=== PATIENT | female | born 1940 | race Caucasian/White ===

== ENCOUNTER → 2017-04-06 | Outpatient (CLI) | payer MEDICARE, OTHER | END | disposition home or self-care (01) | LOC: PCVCCLINIC 15:36 | PROVIDERS: ATTEND Nuclear Medicine Nuclear Cardiology | DX: I10 Essential (primary) hypertension (principal); I73.9 Peripheral vascular disease, unspecified; I72.3 Aneurysm of iliac artery; I77.9 Disorder of arteries and arterioles, unspecified; E78.00 Pure hypercholesterolemia, unspecified; Z87.891 Personal history of nicotine dependence; Z79.899 Other long term (current) drug therapy | CPT/HCPCS: G0463 ==

== ENCOUNTER → 2017-04-08 | Outpatient (CLI) | payer MEDICARE, OTHER ==
[~2017-04-08] MED LIST: CLOPIDOGREL BISULFATE 75 MG TABLET ONE; DIAZEPAM 10 MG TABLET. ONE; EPTIFIBATIDE BOLUS 2,000 MCG/ML 10ML VIAL. IV ONE; HEPARIN SODIUM 5,000 UNIT/ML VIAL for PCVC. ONE; IODIXANOL 270 MG/ML 100 ML VIAL. ONE; IV NORMAL SALINE 1000ML BAG 1,000 ML ONE; IV NORMAL SALINE 500ML BAG 500 ML ONE; LIDOCAINE 1% Multi-Dose 20 ML VIAL. ONE; MIDAZOLAM HCL/PF 2 MG/2 ML VIAL. ONE; VANCOMYCIN 1GM IVPB FOR OMNI 250 ML ONE; fentaNYL PF VIAL 100 MCG/2 ML VIAL ONE
--- NOTE | 2017-04-10 00:13 | PCVCINTER ---
EXAM: 1. AORTOGRAM AND BILATERAL LOWER EXTREMITY RUNOFF ANGIOGRAM 2. BILATERAL RENAL ANGIOGRAPHY 3. LEFT SUPERFICIAL FEMORAL ARTERY ATHERECTOMY. 4. SECONDARY THROMBECTOMY LEFT SUPERFICIAL FEMORAL ARTERY. 5. DRUG COATED BALLOON ANGIOPLASTY LEFT SUPERFICIAL FEMORAL ARTERY. 6. RIGHT EXTERNAL ILIAC ARTERY STENT PLACEMENT. 7. LEFT EXTERNAL ILIAC ARTERY STENT PLACEMENT. INDICATION: Peripheral arterial disease. Coronary artery disease. Nonhealing ulcer right lower extremity. Hypertension. Renal atherosclerosis. PROCEDURE: Procedure and risks of angiography intervention is appropriate including limb loss stroke and were discussed with the patient's family and consent obtained. The patient's right groin was prepped abnormal sterile fashion. IV conscious sedation was used to procedure with appropriate monitoring for 90 minutes. Ultrasound was used to interrogate the right groin and showed the right common femoral artery to be patent. A permanent spot film was obtained. Under ultrasound guidance access into the right common femoral artery was obtained and a 5 Yemeni sheath was placed. Through this a 5 Yemeni flush catheter was placed into the abdominal aorta at the level of the renal arteries and AP aortogram was performed. Catheter was positioned at the aortic bifurcation and both oblique views of the pelvis were obtained. Catheter was positioned into the right external iliac artery and right leg runoff angiography was performed. Catheter was exchanged for a visceral catheter was placed into the right renal arteries and right renal angiograms obtained. Catheter was placed into the the left renal arteries and left renal angiograms were obtained. Catheter was advanced to the level of the left external iliac artery and left leg runoff angiography was obtained. Patient was given 4500 units of heparin. A 6 Yemeni crossover sheath was placed via the right groin to the level of the left common femoral artery. Atherectomy of the left superficial femoral artery was performed with 2.0 mm [employer] laser atherectomy catheter in the standard fashion. Following atherectomy small areas of thrombus were observed and because of this secondary thrombectomy throughout the left superficial femoral artery was carried out with mechanical suction thrombectomy catheter in the standard fashion. Minimal debris was removed. Following this drug coated balloon angioplasty of the left superficial femoral artery was carried out with a 4 x 150 and 4 x 120 [employer]tronic Admiral RN TELE catheter. Stent placement across the areas of high-grade stenosis in the left artery was carried out with a stent with subsequent dilatation to diameter mm. Stent placement across the areas of high-grade stenosis in the left artery was carried out with a stent with subsequent dilatation to diameter mm. Follow-up angiogram was performed. Catheters and wires removed. Sheath was removed and hemostasis obtained using the Exoseal device. No immediate complications. FINDINGS: Aortogram: There is one right and one left renal artery. Moderate ectasia throughout the infrarenal abdominal aorta without significant stenosis. Pelvis: Mild aneurysmal dilatation right common iliac artery. Left common iliac artery is patent. Right renal artery: Moderate plaque proximal vessel does not cause significant stenosis. Left renal artery: Moderate plaque proximal vessel causes only mild stenosis. Right leg: Scattered plaque throughout the superficial femoral artery and popliteal artery which otherwise show adequate patency. The common femoral and profunda femoral arteries are patent. The anterior tibial and posterior tibial arteries are occluded throughout most of their length. Moderate stenosis distal tibial peroneal trunk. Peroneal artery show satisfactory patency throughout. Left leg: Common femoral and profunda femoral arteries are patent. There is 95% stenosis distal superficial femoral artery. The popliteal artery is patent. The anterior and posterior tibial arteries are occluded. The peroneal artery is widely patent throughout to refill the distal anterior tibial artery. Left superficial femoral artery: Following procedure as above adequate patency has been restored throughout the superficial femoral artery. Right external iliac artery: Following procedure as above vessel shows satisfactory patency. Left external iliac artery: Following procedure as above vessel shows satisfactory patency. IMPRESSION: Critical grade stenosis distal left superficial femoral artery was treated as above with good patency restored. Bilateral external iliac artery stenoses were treated with stent placements with satisfactory patency restored. 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 follow up LOC:OFFICE
== END | disposition home or self-care (01) ==
LOC: PCVCINTER 09:02
PROVIDERS: ATTEND Nuclear Medicine Nuclear Cardiology
DX: I70.213 Atherosclerosis of native arteries of extremities with intermittent claudication, bilateral legs (principal); I10 Essential (primary) hypertension; I70.1 Atherosclerosis of renal artery; I25.10 Atherosclerotic heart disease of native coronary artery without angina pectoris
CPT/HCPCS: 36252; 37186; 37221; 37225; 76937; 99152; 99153; C1725; C1751; C1757; C1769; C1876; C1885; C1887; C1894; C2623; J1327; J1644; J2250; J3010; J3370; J7030; J7040; C1760

== ENCOUNTER → 2017-07-12 | Outpatient (CLI) | payer MEDICARE, OTHER ==
--- NOTE | 2017-07-12 10:27 | PCVCIMAG ---
EXAM: AORTOILIAC DUPLEX INDICATION: Peripheral arterial disease FINDINGS: AORTA: Suprarenal aorta measures maximum diameter of 2.7 x 4.1 cm. There is a fusiform infrarenal aortic aneurysm. The infrarenal aorta measures maximum diameter of 2.9 cm. No aortic stenosis. RIGHT COMMON ILIAC ARTERY: Maximum diameter is 1.7 cm. No significant stenosis. RIGHT EXTERNAL ILIAC ARTERY: No significant stenosis. LEFT COMMON ILIAC ARTERY: Maximum diameter is 1.7 cm. No significant stenosis. LEFT EXTERNAL ILIAC ARTERY: No significant stenosis. IMPRESSION: 4.1 cm suprarenal abdominal aortic aneurysm. 2.9 cm infrarenal abdominal aortic aneurysm. Previous bilateral iliac artery stents maintaining good patency. LOC:[id number]
--- NOTE | 2017-07-12 11:03 | PCVCIMAG ---
EXAM: BILATERAL CAROTID DUPLEX INDICATION: Carotid Occlusive Disease. FINDINGS: Doppler Measurements (centimeters per second): RIGHT: Peak CCA-59, Peak ECA-89, Diastolic ICA-28, Peak ICA-114, ICA/CCA Ratio-1.9. LEFT: Peak CCA-80, Peak ECA-106, Diastolic ICA-24, Peak ICA-72, ICA/CCA Ratio-0.9. RIGHT CAROTID: The carotid bulb has moderately severe plaque. The proximal internal carotid artery shows 40-50% stenosis. The common carotid artery shows no significant stenosis. The external carotid artery shows no significant stenosis. LEFT CAROTID: The carotid bulb has moderate plaque. The proximal internal carotid artery shows <40% stenosis. The common carotid artery shows no significant stenosis. The external carotid artery shows no significant stenosis. Antegrade flow in both vertebral arteries. IMPRESSION: 40-50% stenosis of the right internal carotid artery with moderately severe plaque. <40% stenosis of the left internal carotid artery with moderate plaque. LOC:[id number]
--- NOTE | 2017-07-12 11:11 | PCVCIMAG ---
EXAM: BILATERAL LOWER EXTREMITY ARTERIAL DUPLEX INDICATION: Peripheral Arterial Disease. Leg pain. FINDINGS: Right Leg: Satisfactory arterial waveforms in the common femoral and profunda femoral artery and throughout the superficial femoral artery and popliteal artery without flow-limiting stenosis. Occlusion throughout the anterior and posterior tibial arteries. The peroneal artery is patent. Left Leg: Satisfactory arterial waveforms in the common femoral and profunda femoral artery and throughout the superficial femoral artery without significant stenosis. Mild velocity elevation proximal popliteal artery of 204 cm/s consistent with 50% stenosis not felt to be flow-limiting. Occlusion of the anterior and posterior tibial artery. The peroneal artery is patent. IMPRESSION: No right SFA or popliteal artery stenosis. 50% stenosis proximal popliteal artery not felt to be flow-limiting. No left superficial femoral artery stenosis. 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 LOC:[id number]
== END | disposition home or self-care (01) ==
LOC: PCVCIMAG 08:39
PROVIDERS: ATTEND Nuclear Medicine Nuclear Cardiology
DX: I71.4 Abdominal aortic aneurysm, without rupture (principal); I65.23 Occlusion and stenosis of bilateral carotid arteries; I70.202 Unspecified atherosclerosis of native arteries of extremities, left leg; I77.1 Stricture of artery; Z95.828 Presence of other vascular implants and grafts
CPT/HCPCS: 93880; 93925; 93978

== ENCOUNTER → 2018-01-13 | Outpatient (CLI) | payer MEDICARE, OTHER | END | disposition home or self-care (01) | LOC: PCVCIMAG 13:28 | DX: I73.9 Peripheral vascular disease, unspecified (principal) | CPT/HCPCS: 93925 ==

== ENCOUNTER → 2018-07-25 | Outpatient (CLI) | payer MEDICARE, OTHER ==
--- NOTE | 2018-07-25 16:24 | PCVCIMAG ---
EXAM: BILATERAL CAROTID DUPLEX INDICATION: Carotid Occlusive Disease. FINDINGS: Doppler Measurements (centimeters per second): RIGHT: Peak CCA-55, Peak ECA-85, Diastolic ICA-34, Peak ICA-111, ICA/CCA Ratio-2.0. LEFT: Peak CCA-76, Peak ECA-122, Diastolic ICA-24, Peak ICA-81, ICA/CCA Ratio-1.1. RIGHT CAROTID: The carotid bulb has moderate plaque. The proximal internal carotid artery shows 40-50% stenosis. The common carotid artery shows no significant stenosis. The external carotid artery shows no significant stenosis. LEFT CAROTID: The carotid bulb has moderate plaque. The proximal internal carotid artery shows <40% stenosis. The common carotid artery shows no significant stenosis. The external carotid artery shows no significant stenosis. Antegrade flow in both vertebral arteries. IMPRESSION: 40-50% stenosis of the right internal carotid artery with moderate plaque. <40% stenosis of the left internal carotid artery with moderate plaque. No change since July 2017. LOC:[id number]
--- NOTE | 2018-07-25 16:38 | PCVCIMAG ---
EXAM: NONINVASIVE ARTERIAL EXAMINATION OF BOTH LOWER EXTREMITIES INCLUDING PRE AND POST EXERCISE PRESSURE MEASUREMENTS AND DOPPLER WAVEFORMS INDICATION: Peripheral Arterial Disease. Leg pain. FINDINGS: Right Brachial: 124 mm Hg. Right Dorsalis Pedis: 140 mm Hg. Right Posterior Tibial: 0 mm Hg. Right BURTON = 1.13. Left Brachial: 123 mm Hg. Left Dorsalis Pedis: 136 mm Hg. Left Posterior Tibial: 0 mm Hg. Left BURTON = 1.10. Post Exercise: Right Brachial 140 mm Hg. Right Dorsalis Pedis: 107 mm Hg. Left Dorsalis Pedis: 77 mm Hg. Right BURTON = 0.76. Left BURTON = 0.55. IMPRESSION: No resting ischemia in the right lower extremity. Mild exercise induced ischemia in the right lower extremity. No resting ischemia in the left lower extremity. Moderate exercise induced ischemia in the left lower extremity. LOC:[id number]
--- NOTE | 2018-07-25 16:57 | PCVCIMAG ---
EXAM: BILATERAL LOWER EXTREMITY ARTERIAL DUPLEX INDICATION: Peripheral Arterial Disease. Leg pain. FINDINGS: Right Leg: Common femoral profunda femoral arteries are patent. Superficial femoral artery and popliteal artery showing adequate patency. The anterior tibial and posterior tibial arteries are occluded and this is unchanged. The peroneal artery is patent. Left Leg: Common femoral and profunda femoral arteries are patent. Superficial femoral artery shows satisfactory patency throughout. Increased systolic velocity 396 cm/s upper popliteal artery consistent with 80% restenosis. The anterior tibial artery is occluded. The peroneal artery is patent. The distal posterior tibial artery is occluded. IMPRESSION: Unchanged occlusion of the right anterior and posterior tibial arteries. Otherwise no flow limiting stenosis in the right lower extremity. Interval restenosis proximal popliteal artery of at least 80%. Unchanged occlusion of the left anterior and posterior tibial arteries. LOC:[id number]
== END | disposition home or self-care (01) ==
LOC: PCVCIMAG 15:37
PROVIDERS: ATTEND Nuclear Medicine Nuclear Cardiology
DX: I65.23 Occlusion and stenosis of bilateral carotid arteries (principal); I73.9 Peripheral vascular disease, unspecified; I77.9 Disorder of arteries and arterioles, unspecified; I71.4 Abdominal aortic aneurysm, without rupture; I72.3 Aneurysm of iliac artery; I10 Essential (primary) hypertension; E78.00 Pure hypercholesterolemia, unspecified; Z87.891 Personal history of nicotine dependence; Z79.82 Long term (current) use of aspirin
CPT/HCPCS: 36415; 93880; 93923; 93925; G0463; 93924

== ENCOUNTER → 2018-08-02 | Outpatient (CLI) | payer MEDICARE, OTHER ==
[~2018-08-02] MED LIST changes: -CLOPIDOGREL BISULFATE 75 MG TABLET ONE; -HEPARIN SODIUM 5,000 UNIT/ML VIAL for PCVC. ONE; +HEPARIN for SUB-Q USE 5,000 UNIT/ML VIAL. SQ ONE; -IV NORMAL SALINE 500ML BAG 500 ML ONE; -LIDOCAINE 1% Multi-Dose 20 ML VIAL. ONE; +LIDOCAINE 1%/EPI 1:100,000 20 ML VIAL. ONE; -VANCOMYCIN 1GM IVPB FOR OMNI 250 ML ONE; +WATER FOR INJECTION,STERILE 20 ML VIAL. IJ ONE; +ceFAZolin SODIUM 1 GM VIAL ONE
--- NOTE | 2018-08-02 13:59 | PCVCINTER ---
EXAM: 1. AORTOGRAM AND BILATERAL LOWER EXTREMITY RUNOFF ANGIOGRAM 2. BILATERAL RENAL ANGIOGRAPHY 3. LEFT SUPERFICIAL FEMORAL ARTERY AND UPPER LEFT POPLITEAL ARTERY ATHERECTOMY AND DRUG COATED BALLOON ANGIOPLASTY. 4. SECONDARY THROMBECTOMY LEFT POPLITEAL ARTERY. INDICATION: Peripheral arterial disease. Coronary artery disease. Left calf claudication. Hypertension. Renal atherosclerosis. No prior catheter based angiographic study is available. A full diagnostic angiogram study is performed today and the decision to intervene is based on this diagnostic study. PROCEDURE: Procedure and risks of angiography intervention is appropriate including limb loss stroke and were discussed with the patient's family and consent obtained. The patient's right groin was prepped in the normal sterile fashion. IV conscious sedation was used throughout procedure with appropriate monitoring from 12:00 PM through 1:15 PM. Ultrasound was used to interrogate the right groin and showed the right common femoral artery to be patent. A permanent spot film was obtained. Under ultrasound guidance access into the right common femoral artery was obtained and a 5 Kinyarwanda sheath was placed. Through this a 5 Kinyarwanda flush catheter was placed into the abdominal aorta at the level of the renal arteries and AP aortogram was performed. Catheter was positioned at the aortic bifurcation and both oblique views of the pelvis were obtained. Catheter was positioned into the right external iliac artery and right leg runoff angiography was performed. Catheter was exchanged for a visceral catheter was placed into the right renal arteries and right renal angiograms obtained. Catheter was placed into the the left renal arteries and left renal angiograms were obtained. Catheter was advanced to the level of the left external iliac artery and left leg runoff angiography was obtained. Patient was given 4000 units of heparin. A 6 Kinyarwanda crossover sheath was placed via the right groin to the level of the left common femoral artery. Atherectomy of the left mid/distal superficial femoral artery and upper popliteal artery was performed with 2.0 mm [employer] laser atherectomy catheter in the standard fashion. Following atherectomy small areas of thrombus were observed and because of this secondary thrombectomy throughout the left popliteal artery was carried out with mechanical suction thrombectomy catheter in the standard fashion. Minimal debris was removed. Following this drug coated balloon angioplasty of the left mid/distal superficial femoral artery and upper popliteal artery was carried out with a 4 x 120 and 4 x 120 [employer] Cyndie Jeremy FUEL MANAGER catheters. Follow-up angiogram was performed. Catheters and wires removed. Sheath was removed and hemostasis obtained using the FISH device. No immediate complications. FINDINGS: Aortogram: There is one right and one left renal artery. Moderate plaque infrarenal abdominal aorta without significant stenosis. Ectasia throughout the abdominal aorta. Pelvis: Moderate ectasia right common iliac artery. Previous stent distal right common iliac artery and right external iliac artery showing satisfactory patency. Left common iliac artery is patent. Previous left external iliac artery stent is patent. Both internal iliac arteries are patent. The right and left common femoral and profunda femoral arteries are patent. Right renal artery: Moderate plaque proximal vessel causes only mild stenosis. Left renal artery: Mild plaque proximal vessel causes minimal stenosis. Right leg: Moderate scattered plaque at the superficial femoral artery and popliteal artery without flow-limiting stenosis until the distal most popliteal artery with there is 60% stenosis. The anterior tibial and posterior tibial arteries are occluded. Moderate stenosis distal tibial peroneal trunk. The peroneal artery then shows good patency throughout its length to refill the distal anterior tibial artery into a small dorsalis pedis. Left leg: Moderate plaque mid and upper superficial femoral artery without significant stenosis. Moderate stenosis distal superficial femoral artery and 90% stenosis upper popliteal artery. Mid and lower popliteal artery is patent. Anterior tibial and posterior tibial arteries are occluded. The peroneal artery shows good patency throughout to refill a small dorsalis pedis. Left superficial femoral artery/popliteal artery: Following procedure as above satisfactory patency throughout the superficial femoral artery and popliteal artery has been restored. IMPRESSION: 90% stenosis upper left popliteal artery and moderate stenosis mid/distal left superficial femoral artery were treated as above with satisfactory patency restored. 60% stenosis distal right popliteal artery. Single peroneal artery runoff bilaterally. LOC:[id number]
== END | disposition home or self-care (01) ==
LOC: PCVCINTER 11:54
PROVIDERS: ATTEND Nuclear Medicine Nuclear Cardiology
DX: I70.213 Atherosclerosis of native arteries of extremities with intermittent claudication, bilateral legs (principal); I70.1 Atherosclerosis of renal artery; I25.10 Atherosclerotic heart disease of native coronary artery without angina pectoris; I10 Essential (primary) hypertension; I70.0 Atherosclerosis of aorta; H40.9 Unspecified glaucoma; E78.00 Pure hypercholesterolemia, unspecified; Z87.891 Personal history of nicotine dependence; Z72.89 Other problems related to lifestyle; Z98.890 Other specified postprocedural states; M85.80 Other specified disorders of bone density and structure, unspecified site; I83.93 Asymptomatic varicose veins of bilateral lower extremities; G47.419 Narcolepsy without cataplexy; Z82.49 Family history of ischemic heart disease and other diseases of the circulatory system; Z88.1 Allergy status to other antibiotic agents; Z91.018 Allergy to other foods; Z79.899 Other long term (current) drug therapy; Z79.82 Long term (current) use of aspirin
CPT/HCPCS: 36252; 37186; 37225; 75716; 76937; 99152; 99153; C1725; C1751; C1757; C1760; C1769; C1885; C1894; C2623; J0690; J1327; J1644; J2250; J3010; J3490; J7030; Q9966; Q9967